=== PATIENT | female | born 1955 | race African-American/Black ===

== ENCOUNTER 2018-11-14 01:34 | Inpatient (IN) | payer BC ==
[~2018-11-14] VITALS: Ht 165.1 cm; Wt 95.3 kg
[2018-11-14 01:45] VITALS: BP_SYST 189
[2018-11-14] MEDS ORDERED: DIAZEPAM 5 MG TABLET (VALIUM) PO ONE (02:30)
[2018-11-14] MEDS ORDERED: KETOROLAC TROMETHAMINE 30 MG VIAL IVP ONE (02:30)
[2018-11-14 02:52] LABS: BASOPHILS # (AUTO) 0.1 K/uL (0.0-0.2); BASOPHILS % (AUTO) 0.6 % (0.0-2.0); EOSINOPHILS % (AUTO) 0.2 % (0.0-4.0); HEMATOCRIT 36.6 % (36-48); HEMOGLOBIN 11.9 g/dL (12.0-16.0); LYMPHOCYTES # (AUTO) 2.7 K/uL (1.0-5.5); LYMPHOCYTES % (AUTO) 22.3 % (20.5-51.5); MEAN CORPUSCULAR HEMOGLOBIN 28 pg (27-31); MEAN CORPUSCULAR HGB CONC 33 % (32-36); MEAN CORPUSCULAR VOLUME 87 fL (79.0-98.0); MONOCYTES # (AUTO) 0.8 K/uL (0.0-1.0); MONOCYTES % (AUTO) 6.1 % (1.7-9.3); NEUTROPHILS # (AUTO) 8.7 K/uL (1.8-7.7); NEUTROPHILS % (AUTO) 70.8 % (40.0-70.0); PLATELET COUNT (AUTO) 292 K/uL (130-430); RED BLOOD CELL COUNT(AUTO) 4.23 MIL/uL (4.2-6.2); RED CELL DISTRIBUTION WIDTH 12.7 % (9.0-15.0); WHITE BLOOD COUNT (AUTO) 12.3 K/uL (4.8-10.8)
[2018-11-14 02:58] LABS: CALCIUM 9.2 mg/dL (8.4-11.0); CREATININE 0.97 mg/dL (0.55-1.30); POTASSIUM 3.8 mmol/L (3.5-5.1)
[2018-11-14 03:02] LABS: INR 0.9 (0.8-1.2); PROTHROMBIN TIME 9.2 SECS (9.5-12.5)
[2018-11-14 03:03] LABS: ALBUMIN 3.5 g/dL (3.4-4.8); C-REACTIVE PROTEIN QUANT 3.8 mg/dL (0-0.5); TOTAL BILIRUBIN 0.6 mg/dL (0.0-1.0)
[2018-11-14 03:43] LABS: BILIRUBIN,URINE NEGATIVE (NEGATIVE); BLOOD, URINE NEGATIVE (NEGATIVE); CLARITY/URINE CLEAR (CLEAR); COLOR,URINE YELLOW (YELLOW); GLUCOSE,URINE NEGATIVE (NEGATIVE); KETONES,URINE NEGATIVE (NEGATIVE); LEUKOCYTE ESTERASE ,URINE 1+ (NEGATIVE); NITRITE, URINE NEGATIVE (NEGATIVE); PROTEIN URINE NEGATIVE (NEGATIVE); UROBILINOGEN,URINE 0.2 (0.2-1.0)
[2018-11-14 03:46] LABS: RBC,URINE 0-3 /HPF (0-3)
[2018-11-14 03:47] LABS: BACTERIA,URINE FEW /HPF (None Seen)
[2018-11-14 03:50] LABS: ERYTHROCYTE SEDIMENTATION RATE 43 MM/HR (0-20)
[2018-11-14] MEDS ORDERED: cefTRIAXone 1 GM in D5W 50 ML IV ONE (04:00)
[2018-11-14] MEDS ORDERED: cefTRIAXone 1 GM VIAL ONE (04:18)
[2018-11-14] MEDS ORDERED: IOHEXOL 100 ML IV ONE (04:43)
[2018-11-14] MEDS ORDERED: ACETAMINOPHEN 325 MG TABLET PO PRN (08:45)
[2018-11-14] MEDS ORDERED: ONDANSETRON HCL 4 MG/2 ML VIAL IVP PRN (08:45)
[2018-11-14 09:13] VITALS: BP_SYST 147
[2018-11-14] MEDS: FAMOTIDINE 20 MG TABLET PO SCH ×2 (09:33→20:36)
[2018-11-14] MEDS: IBUPROFEN 600 MG TABLET PO PRN ×2 (11:24→23:42)
[2018-11-14 12:30] VITALS: BP_SYST 147
[2018-11-14] MEDS: BACLOFEN 10 MG TABLET PO SCH ×2 (14:45→20:36)
[2018-11-14 16:52] VITALS: BP_SYST 140
[2018-11-14 20:00] VITALS: BP_SYST 124
[2018-11-14] MEDS ORDERED: cefTRIAXone 1 GM IVPB PREMIX 50 ML IV SCH (21:00)
[2018-11-15] VITALS: BP_SYST 141
[2018-11-15 07:24] LABS: CALCIUM 8.7 mg/dL (8.4-11.0); CREATININE 0.82 mg/dL (0.55-1.30); POTASSIUM 3.8 mmol/L (3.5-5.1); TOTAL BILIRUBIN 0.5 mg/dL (0.0-1.0)
[2018-11-15 07:26] LABS: BASOPHILS % (AUTO) 0.6 % (0.0-2.0); EOSINOPHILS # (AUTO) 0.1 K/uL (0.0-0.4); EOSINOPHILS % (AUTO) 1.2 % (0.0-4.0); HEMATOCRIT 35.1 % (36-48); HEMOGLOBIN 11.3 g/dL (12.0-16.0); LYMPHOCYTES # (AUTO) 2.8 K/uL (1.0-5.5); LYMPHOCYTES % (AUTO) 37.2 % (20.5-51.5); MEAN CORPUSCULAR HEMOGLOBIN 28 pg (27-31); MEAN CORPUSCULAR HGB CONC 32 % (32-36); MEAN CORPUSCULAR VOLUME 88 fL (79.0-98.0); MONOCYTES # (AUTO) 0.5 K/uL (0.0-1.0); MONOCYTES % (AUTO) 7.1 % (1.7-9.3); NEUTROPHILS % (AUTO) 53.9 % (40.0-70.0); PLATELET COUNT (AUTO) 272 K/uL (130-430); RED BLOOD CELL COUNT(AUTO) 3.99 MIL/uL (4.2-6.2); RED CELL DISTRIBUTION WIDTH 12.7 % (9.0-15.0); WHITE BLOOD COUNT (AUTO) 7.5 K/uL (4.8-10.8)
[2018-11-15 08:03] VITALS: BP_SYST 126
[2018-11-15] MEDS: FAMOTIDINE 20 MG TABLET PO SCH (08:22)
[2018-11-15] MEDS: BACLOFEN 10 MG TABLET PO SCH (08:23)
[2018-11-15 08:59] VITALS: BP_SYST 126
[2018-11-15] MEDS ORDERED: ENOXAPARIN SODIUM 40 MG/0.4 ML SYRINGE SUBCUT SCH (09:00)
[2018-11-15] MEDS ORDERED: LISINOPRIL 10 MG TABLET (PRINIVIL) PO SCH (09:00)
[2018-11-15] MEDS ORDERED: IBUP-1968 PO (09:56)
[2018-11-15] MEDS ORDERED: CEPH-568 PO (09:56)
== END 2018-11-15 10:20 | disposition home or self-care (01) | DRG 690 ==
LOC: SED 01:34 → SMU 08:03
PROVIDERS: ADMIT Internal Medicine; ATTEND Internal Medicine
DX: N39.0 Urinary tract infection, site not specified (principal); M19.90 Unspecified osteoarthritis, unspecified site; I10 Essential (primary) hypertension; E86.0 Dehydration; M54.5 Low back pain; E66.9 Obesity, unspecified; F40.240 Claustrophobia; R73.9 Hyperglycemia, unspecified; Z53.20 Procedure and treatment not carried out because of patient's decision for unspecified reasons; Z68.34 Body mass index [BMI] 34.0-34.9, adult
CPT/HCPCS: 36415; 71260-TC; 72128; 72132-TC; 80053; 81000-TC; 82550-TC; 83036; 85025; 85610-TC; 85651-TC; 85730-TC; 86140; 87040-TC; 87086; 96374; 96375; 99285; J0696; J1650; J1885; Q9967